=== PATIENT | male | born 1995 | race American Indian/Alaskan Native ===

== ENCOUNTER 2021-01-28 15:51 | Emergency (ER) | payer SELFPAY ==
[2021-01-28 18:03] VITALS: BP 116/76
== END 2021-01-28 20:05 | disposition left against medical advice (07) ==
LOC: ED 15:51
DX: R21 Rash and other nonspecific skin eruption (principal); Z53.21 Procedure and treatment not carried out due to patient leaving prior to being seen by health care provider